=== PATIENT | female | born 1945 | race Caucasian/White ===

== ENCOUNTER → 2020-04-16 15:12 | Outpatient (CLI) | payer MEDICARE, OTHER, SELFPAY ==
--- NOTE | 2020-04-16 15:16 | XR_ITS ---
PROCEDURE: XR FOOT WT BEARING RT 3V CLINICAL INDICATION: Right Great Toe bruised and swollen COMPARISON: No exams were available for comparison FINDINGS: No fracture or dislocation. No lytic or blastic change. There is normal mineralization. There are severe osteoarthritic changes of the 1st metatarsophalangeal joint. Mild osteoarthritis involves the talonavicular joint and navicular cuneiform. There is a small calcaneal spur. There is generalized vascular calcification. No bony erosive process evident. Other findings:None. IMPRESSION: Osteoarthritis, no acute fracture Dictated by: Sagar Wilder MD 04/16/2020 15:41 Electronically signed by Sagar Wilder MD in [place] 04/16/2020 15:41
== END ==
PROVIDERS: PCP Family Medicine; Visit Provider Nurse Practitioner
DX: S99.921A Unspecified injury of right foot, initial encounter (principal)
CPT/HCPCS: 73630

== ENCOUNTER → 2021-01-06 13:22 | Outpatient (POV) | payer MEDICARE, OTHER, SELFPAY | PROVIDERS: Visit Provider Dermatology | DX: Z00.00 Encounter for general adult medical examination without abnormal findings (principal) ==

== ENCOUNTER 2021-07-28 13:00 | Outpatient (RCR) | payer MEDICARE, OTHER, SELFPAY | END 2021-09-17 13:05 | disposition home or self-care (01) | LOC: PT 13:00 | PROVIDERS: PCP Family Medicine; Visit Provider Family Medicine | DX: L97.911 Non-pressure chronic ulcer of unspecified part of right lower leg limited to breakdown of skin (principal) | CPT/HCPCS: 97162; 97597 ==

== ENCOUNTER → 2023-06-14 14:05 | Outpatient (POV) | payer MEDICARE, OTHER, SELFPAY | PROVIDERS: Visit Provider Dermatology | DX: Z00.00 Encounter for general adult medical examination without abnormal findings (principal) ==

== ENCOUNTER → 2023-07-25 12:30 | Outpatient (REF) | payer MEDICARE, OTHER, SELFPAY ==
--- OUTSIDE RECORDS SUMMARY | 2023-07-25 12:33 | XMS_ITS | Continuity of Care Document ---
Author Name Unknown Address [address] [place], [place] [id number] Organization [facility] Phone Care Team Providers Care Stoker Installer Name Role Phone JORGE CONTEH Admitting JORGE CONTEH Unavailable JORGE CONTEH Primary Attending [phone] CARLOS WOODS Primary Care ALLERGIES AND ADVERSE REACTIONS ALLERGIES AND ADVERSE REACTIONS Code System Allergy Substance Adverse Reaction Date Reaction (Severity) Comment Status Reported By Updated By 4719 RXNorm LOPID Adverse reaction to substance Not Specified active [id number] on February 05, 2023 10:26:56 PM UTC 1292 RXNorm Baclofen Adverse reaction to substance Not Specified active [id number] on February 05, 2023 10:26:56 PM UTC 83710 RXNorm Bactrim Adverse reaction to substance Not Specified active [id number] on February 05, 2023 10:26:56 [place] [id number] SNOMED CT PENICILLINS Adverse reaction to substance Not Specified active [id number] on February 05, 2023 10:26:56 PM UTC 2670 RXNorm CODEINE Adverse reaction to substance Not Specified active [id number] on February 05, 2023 10:26:56 [place] [id number] SNOMED CT SULFA ANTIBIOTICS Adverse reaction to substance Not Specified active [id number] on February 05, 2023 10:26:56 PM UTC
--- OUTSIDE RECORDS SUMMARY | 2023-07-25 12:34 | XMS_ITS | Continuity of Care Document ---
Author Name Unknown Address [address] [place], [place] [id number] Organization [facility] Phone Care Team Providers Care Billboard Erector Helper Name Role Phone PARVIN MADISON Unavailable PARVIN MADISON Admitting CARLOS WOODS Primary Care PARVIN MADISON Primary Attending ALLERGIES AND ADVERSE REACTIONS ALLERGIES AND ADVERSE REACTIONS Code System Allergy Substance Adverse Reaction Date Reaction (Severity) Comment Status Reported By Updated By 4719 RXNorm LOPID Adverse reaction to substance Not Specified active [id number] on July 05, 2023 5:20:39 PM UTC 1292 RXNorm Baclofen Adverse reaction to substance Not Specified active [id number] on July 05, 2023 5:20:38 PM UTC 68134 RXNorm Bactrim Adverse reaction to substance Not Specified active [id number] on July 05, 2023 5:20:38 PM UTC [id number] SNOMED CT PENICILLINS Adverse reaction to substance Not Specified active [id number] on July 05, 2023 5:20:39 PM UTC 2670 RXNorm CODEINE Adverse reaction to substance Not Specified active [id number] on July 05, 2023 5:20:39 PM UTC [id number] SNOMED CT SULFA ANTIBIOTICS Adverse reaction to substance Not Specified active [id number] on July 05, 2023 5:20:39 PM UTC
--- OUTSIDE RECORDS SUMMARY | 2023-07-25 12:34 | XMS_ITS | Continuity of Care Document ---
Author Name Unknown Address [address] [place], [place] [id number] Organization [facility] Phone Care Team Providers Care Hatch Tender Name Role Phone JORGE CONTEH Admitting JORGE CONTEH Unavailable JROGE CONTEH Primary Attending CARLOS WOODS Primary Care ALLERGIES AND ADVERSE REACTIONS ALLERGIES AND ADVERSE REACTIONS Code System Allergy Substance Adverse Reaction Date Reaction (Severity) Comment Status Reported By Updated By 4719 RXNorm LOPID Adverse reaction to substance Not Specified active [id number] on February 05, 2023 10:26:56 PM UTC 1292 RXNorm Baclofen Adverse reaction to substance Not Specified active [id number] on February 05, 2023 10:26:56 PM UTC 23572 RXNorm Bactrim Adverse reaction to substance Not Specified active [id number] on February 05, 2023 10:26:56 [place] [id number] SNOMED CT PENICILLINS Adverse reaction to substance Not Specified active [id number] on February 05, 2023 10:26:56 PM UTC 2670 RXNorm CODEINE Adverse reaction to substance Not Specified active [id number] on February 05, 2023 10:26:56 PM [place] [id number] SNOMED CT SULFA ANTIBIOTICS Adverse reaction to substance Not Specified active [id number] on February 05, 2023 10:26:56 PM UTC
--- OUTSIDE RECORDS SUMMARY | 2023-07-25 12:34 | XMS_ITS | Continuity of Care Document ---
Author Name Unknown Address [address] [place], [place] [id number] Organization [facility] Phone Care Team Providers Care Front Desk Representative Name Role Phone PARVIN MADISON Unavailable PARVIN MADISON Admitting CARLOS WOODS Primary Care PARVIN MADISON Primary Attending ALLERGIES AND ADVERSE REACTIONS ALLERGIES AND ADVERSE REACTIONS Code System Allergy Substance Adverse Reaction Date Reaction (Severity) Comment Status Reported By Updated By 4719 RXNorm LOPID Adverse reaction to substance Not Specified active [id number] on July 05, 2023 5:20:39 PM UTC 1292 RXNorm Baclofen Adverse reaction to substance Not Specified active [id number] on July 05, 2023 5:20:38 PM UTC 64381 RXNorm Bactrim Adverse reaction to substance Not Specified active [id number] on July 05, 2023 5:20:38 PM UTC [id number] SNOMED CT PENICILLINS Adverse reaction to substance Not Specified active [id number] on July 05, 2023 5:20:39 PM UTC 2670 RXNorm CODEINE Adverse reaction to substance Not Specified active [id number] on July 05, 2023 5:20:39 PM UTC [id number] SNOMED CT SULFA ANTIBIOTICS Adverse reaction to substance Not Specified active [id number] on July 05, 2023 5:20:39 PM UTC
[2023-07-25 16:04] LABS: Basophils % 0.2 % (0.1-2.0); Eosinophils # 0.1 K/mm3 (0.0-0.4); Eosinophils % 1.4 % (0.1-12.0); Hematocrit 30.6 % (37.0-47.0); Hemoglobin 10.1 g/dL (12.2-16.2); Lymphocytes # 0.8 K/mm3 (0.7-4.5); Lymphocytes % 7.9 % (10-50); Mean Corpuscular Hemoglobin 32.9 pg (27.0-31.2); Mean Corpuscular Volume 99.8 fl (81-99); Mean Platelet Volume 8.6 fl (7.4-10.4); Monocytes % 10.2 % (1.7-9.3); Neutrophils # 7.9 K/mm3 (1.8-7.8); Neutrophils % 80.3 % (37.0-80.0); Platelet Count 312 K/mm3 (142-424); Red Blood Count 3.06 M/mm3 (4.20-5.40); Red Cell Distribution Width 17.6 % (11.5-17.5); White Blood Count 9.9 K/mm3 (4.8-10.8)
[2023-07-25 16:23] LABS: Chloride 99 mmol/L (98-107); Potassium 4.4 mmoL/L (3.5-5.1); Sodium 136 mmol/L (136-145)
[2023-07-25 16:26] LABS: Blood Urea Nitrogen 47 mg/dl (7-17); Estimated Glomerular Filt Rate 20 ml/min (>60); GFR (African American) 25 ML/MIN (>60)
[2023-07-25 16:27] LABS: Anion Gap 14.4 mEq/L (5-15); Calcium 7.2 mg/dl (8.4-10.2); Carbon Dioxide 27 mmol/L (22.0-30.0); Glucose 130 mg/dl (74-100)
== END ==
LOC: LAB.DROPOF 12:30
PROVIDERS: Visit Provider Internal Medicine Adolescent Medicine
DX: W19.XXXD Unspecified fall, subsequent encounter (principal); I10 Essential (primary) hypertension; E11.42 Type 2 diabetes mellitus with diabetic polyneuropathy
CPT/HCPCS: 80048; 85025